=== PATIENT | male | born 1950 | race Caucasian/White ===

== ENCOUNTER 2021-03-13 15:31 | Observation (INO) | payer MEDICARE, SELFPAY ==
[2021-03-13] VITALS (12 sets, daily range): BP systolic 122–146; BP diastolic 48–64; PULSE 81–92; RESP 17–20; TEMP 36.7–37.4; O2SAT 95–99; BMI 28.1; BMI 27.2
--- NOTE | 2021-03-13 15:49 | CT_ITS ---
We are attempting to reach an attending provider to discuss findings. An addendum with communication details will be sent when the communication is complete. HISTORY: Neuro deficit, acute, stroke suspected EXAMINATION: CT Head Stroke Protocol W/O Contrast Injection TECHNIQUE: Multiple axial images were obtained of the head without intravenous contrast. A radiation dose optimization technique was used for this scan. IV Contrast dosage and agent: COMPARISON: None FINDINGS: BRAIN PARENCHYMA: No intra- or extra-axial hemorrhage. No evidence of acute infarct. No intracranial mass or mass effect. There is preservation of the tijer[place]/white matter interface. Posterior fossa structures are unremarkable. CSF SPACES: Appropriate for age. No hydrocephalus. Basal cisterns are patent. CALVARIUM, SKULL BASE, PARANASAL SINUSES AND MASTOID AIR CELLS: Scattered mucoperiosteal disease. No discrete lytic or blastic abnormalities. ORBITS: Both globes, extraocular muscles, optic nerves and retrobulbar fat appear unremarkable. ASPECTS Score for Acute Strokes: 10 CT/STROKE Brain/Head without Cont IMPRESSION: No acute intracranial findings. Individualized dose optimization techniques were used for this CT. at 1635 Reported and signed by: Adonis Forde MD Electronically Signed: Adonis Forde MD at 16:34 EDT Tel , Service support ,
--- NOTE | 2021-03-13 15:49 | EKG12_ITS ---
Test Reason : NAUSA VOMIT Blood Pressure : / mmHG Vent. Rate : 081 BPM Atrial Rate : 081 BPM P-R Int : 130 ms QRS Dur : 082 ms QT Int : 376 ms P-R-T Axes : 049 012 049 degrees QTc Int : 436 ms Normal sinus rhythm Normal ECG Confirmed by MAVERICK JOHNSON, MAGDA ([id number]), assistant editor RE PAEZ ([id number]) on 03/15/2021 9:39:57 AM Referred By: Confirmed By:MGADA TEMPLE MD
--- NOTE | 2021-03-13 15:50 | ED.VIS.STROK ---
HPI History of Present Illness Chief Complaint: Nausea/Vomiting Informant: patient and spouse/S.O. Onset/Context/Timing Onset: Weeks Context: Sudden Onset Timing: Intermittent and Waxes and wanes Quality and Location: Positive for Difficulty with Ambulation Current Severity: Moderate Maximum Severity: Moderate Worsened by: Nothing Relieved by: Nothing Associated Symptoms Associated Symptoms: Positive for Nausea and Vomiting; Negative for Headache and Chest Pain Narrative Narrative: Patient is an elderly male who presents with chief complaint of nausea and vomiting. He had an episode of nausea and vomiting last evening with problems with his balance. He presents because he had nausea vomiting several hours prior to presentation with problems with his balance. He states he is not able to walk. He states he has had problems with his balance intermittently for a long time. There is nothing that exacerbates, precipitates or alleviates his balance issue. He denies double vision or blurred vision. He denies ringing in his ears or decreased hearing. He denies headache. He denies trouble with speech or swallowing. He denies cardiac or respiratory symptoms. He denies black stool or maroon stool. He denies dysuria, frequency, urgency or hematuria. He denies history of trauma in the last several weeks. He does report history of cardiac disease status post bypass surgery 1996 with placement of 2 stents since. He also has history of hypertension hypercholesterolemia. He does not know the name of his medication. Prior similar symptoms: Yes Recent Illness/Hospitalization: No PFSH PFSH Medical History (Updated 03/13/21 @ 15:[address] Emir Chavez MD) History of coronary artery disease Hyperlipemia Hypertension Leukemia Allergy/AdvReac Type Severity Reaction Status Date / Time bee venom protein (honey bee) Allergy Anaphylaxis Verified 03/13/21 15:37 Surgical History (Updated 03/13/21 @ 15:43 by Carolina Caicedo) Hx of CABG Stented coronary artery no surgical history Social History (Updated 03/13/21 @ 15:[address] Emir Chavez MD) household members: spouse housing: house Smoking Status: Never smoker alcohol intake: current alcohol intake frequency: holidays/special occasions only substance use type: does not use ROS ROS ED Constitutional Constitutional ED: Denies chills, fever(s), subjective or sweats Eyes Eyes: Denies blurry vision, change in vision or diplopia ENT ENT ED: Denies ear pain, rhinorrhea or sore throat Cardiovascular Cardiovascular: Denies chest pain, palpitations, paroxysmal nocturnal dyspnea or racing heartbeat Respiratory/Chest Respiratory/Chest: Denies cough, dyspnea, dyspnea on exertion, paroxysmal nocturnal dyspnea or sputum Gastrointestinal Gastrointestinal: Reports nausea and vomiting; Denies abdominal pain, diarrhea or melena Genitourinary Genitourinary ED: Denies dysuria, hematuria or urinary frequency Musculoskeletal Musculoskeletal: Denies back pain, myalgias or neck pain Integumentary Denies rash Neurologic Neurologic: Denies headache(s), paresthesias or weakness Endocrine Endocrinology: Denies polydipsia, polyphagia or polyuria Hematologic/Lymphatic Hematologic/Lymphatic: Denies easy bleeding or easy bruising EXAM Physical Exam Const Vital Signs: 03/13/21 15:33 03/13/21 15:37 03/13/21 15:49 Temperature 99 F 99 F Temperature Source Oral Oral Pulse Rate 81 81 81 Respiratory Rate 18 18 20 H Blood Pressure 135/64 H 135/64 H 142/58 H Blood Pressure Mean 87 87 86 Pulse Ox 96 96 95 Oxygen Delivery Method Room Air Room Air Room Air 03/13/21 15:59 03/13/21 16:02 Temperature 99 F Temperature Source Oral Pulse Rate 81 Respiratory Rate 18 Blood Pressure 139/53 H Blood Pressure Mean 81 Pulse Ox 99 Oxygen Delivery Method Room Air Room Air Positive well nourished and well developed General Appearance ED: well developed and other Pain prefers to keep his eyes closed. He appears pale. Psychomotor skills are slow. HEENT Reports TM's clear and dry mucous membranes atraumatic Tympanic Membrane ED: Yes TM's clear Mouth ED: Yes dry mucous membranes Mouth: dry mucous membranes Eyes PERRL and EOMs intact bilaterally General Eye ED: Negative for pale conjunctiva or scleral icterus Neck no lymphadenopathy, supple and no JVD Thyroid: other Other Details: There is transmission of systolic murmur to the right and left side of the neck. Chest Wall inspection of chest normal Resp normal respiratory effort and clear to auscultation bilaterally Cardio Negative for no murmurs Cardio Narrative: There is a systolic crescendo and decrescendo in López heard throughout the precordium and radiates to the right and left side of the neck that is a grade 2/6. Rate: regular rate Rhythm: regular rhythm Heart Sounds: S1 normal and S2 normal GI normal to inspection, nondistended, normoactive bowel sounds GI Narrative: There is no palpable mass or pulsatile mass. There is no abdominal bruit noted. Palpation: Negative for hepatomegaly or splenomegaly Back/Spine no CVA tenderness Cervical Spine: Negative for cervical spine tenderness Thoracic Spine / Upper Back: Negative for thoracic spinal tenderness Extremity normal to inspection General Extremety ED: Negative for deformity, edema or tenderness General Extremity: Negative for deformity or edema Neuro oriented x3, CN's II-XII intact bilaterally and no sensory deficits noted Neuro Narrative: Cranials 2 through 12 are intact. Montse-Hallpike maneuver was negative. The eye skew test was negative. The H INT test was negative. Sensorium / Orientation: oriented to person, oriented to place, oriented to time and orientation impaired Speech: speech normal Gait (Neuro): Negative for normal gait Motor Exam: strength 5/5 throughout Psych mental status grossly normal Skin Rashes: no rashes STROKE Vital Signs/Narrative: Vital Signs Temp Pulse Resp BP Pulse Ox 03/13/21 16:02 99 F 81 18 139/53 H 99 03/13/21 15:49 81 20 H 142/58 H 95 03/13/21 15:37 99 F 81 18 135/64 H 96 03/13/21 15:33 99 F 81 18 135/64 H 96 NIHSS Initial: 1a Level of Consciousness: 1 1b LOC Questions (Score 2 if aphasic/stupor): 0 1c LOC Commands (Only score 1st attempt): 0 2 Best Gaze (If aphasic, use reflexive mvmts.): 0 3 Visual: 0 4 Facial Palsy: 0 5 Motor Arm Right (UN = amputation/fusion): 0 5 Motor Arm Left: 0 6 Motor Leg Right: 0 6 Motor Leg Left: 0 7 Limb ataxia (Only + if out of proportion): 0 8 Sensory (Aphasia/stupor=0 or 1, coma=2): 0 9 Best Language: 0 10 Dysarthria (mute, coma=2, intubated=UN): 0 11 Extinction and Inattention (only scored if +): 0 Total Score: 1 MDM MDM MDM Narrative Medical decision making narrative: Patient has broad-based gait and falls to the right. His NIH score is 1, however. Lab Data Attestation: I reviewed the patient's lab results. Lab results narrative: CBC, coags, electrolyte panel troponin are all normal. I received a call from radiologist that there is no acute stroke noted. Since patient is unable to ambulate falling to the right side with broad-based ataxic gait will call hospitalist for admission and stroke work-up. Labs: Laboratory Results - last 24 hr 03/13/21 03/13/21 03/13/21 16:03 16:05 16:05 WBC 3.3 L RBC 3.06 L Hgb 9.3 L Hct 28.1 L MCV 91.8 MCH 30.4 MCHC 33.1 RDW Std Deviation 47.3 H RDW Coeff of [place] 14.2 Plt Count 153 MPV 9.4 Immature Gran % (Auto) 0.300 Neut % (Auto) 65.3 Lymph % (Auto) 17.2 L [place] % (Auto) 13.9 H Eos % (Auto) 3.0 Baso % (Auto) 0.3 Absolute Neuts (auto) 2.2 Absolute Lymphs (auto) 0.57 L Nucleated RBC % 0 PT 13.9 INR 1.1 APTT 29.8 Sodium Potassium Chloride Carbon Dioxide Anion Gap BUN Creatinine Estim Creat Clear Calc Est GFR (MDRD) Af Amer Est GFR (MDRD) Non-Af BUN/Creatinine Ratio Glucose Calcium Troponin I POC Glucose 119 H 03/13/21 16:05 WBC RBC Hgb Hct MCV MCH MCHC RDW Std Deviation RDW Coeff of [place] Plt Count MPV Immature Gran % (Auto) Neut % (Auto) Lymph % (Auto) [place] % (Auto) Eos % (Auto) Baso % (Auto) Absolute Neuts (auto) Absolute Lymphs (auto) Nucleated RBC % PT INR APTT Sodium 133 L Potassium 3.8 Chloride 102 Carbon Dioxide 26.0 Anion Gap 5 BUN 17 Creatinine 1.08 Estim Creat Clear Calc 63.84 Est GFR (MDRD) Af Amer 86 Est GFR (MDRD) Non-Af 71 BUN/Creatinine Ratio 15.7 Glucose 121 H Calcium 8.2 L Troponin I < 0.015 POC Glucose Radiography Diagnostic Testing: Radiology Impression Brain CT 03/13/21 15:49 IMPRESSION: No acute intracranial findings. Individualized dose optimization techniques were used for this CT. at 1635 Reported and signed by: Adonis Forde MD Electronically Signed: Adonis Forde MD at 16:34 EDT Tel , Service support , Stroke Documentation Questions Stroke Team Activated: No Reviewed Inclusion/Exclusion criteria: No Was Patient considered for Endovascular Intervention?: No IV Alteplase (t-PA) Administered: No No contraindications for IV Alteplase (t-PA) administration.: No Alteplase (t-PA) risks, benefits, alternative discussed: No (Patient outside the window) Discharge Plan Triage Chief Complaint: Nausea/Vomiting ED Provider: Emir Chavez Dx/Rx/DC Orders Primary Care Provider: Jesse Gonzalez
[2021-03-13 16:10] LABS: Bedside Glucose 119 mg/dL (70-110)
[2021-03-13 16:14] LABS: Absolute Lymphocyte Count 0.57 X10^3/uL (0.83-4.51); Absolute Neutrophil Count 2.2 X10^3/uL (2.0-7.7); Basophil# 0.01 X10^3/uL; Basophil% 0.3 % (0-1); Hematocrit 28.1 % (40-54); Hemoglobin 9.3 g/dL (13.0-16.5); Lymphocyte # 0.57 X10^3/ul (0.83-4.51); Lymphocyte % 17.2 % (19-41); Mean Corp Hgb Conc 33.1 g/dL (32-36); Mean Corpuscular Hgb 30.4 pg (27.0-32.0); Mean Corpuscular Volume 91.8 fL (80-94); Mean Platelet Vol. 9.4 fl (6.2-12.0); Monocyte# 0.46 X10^3/uL; Monocyte% 13.9 % (0-10); NRBC Flagged by Analyzer 0 % (0-5); Neutrophil # 2.17 X10^3/uL (2.7-7.7); Neutrophil % 65.3 % (47-70); POSITIVE DIFFERENTIAL YES; Platelet Count 153 K/mm3 (150-450); RBC Distribution Width CV 14.2 % (11.6-14.6); RBC Distribution Width SD 47.3 fl (35.1-43.9); Red Blood Count 3.06 M/mm3 (4.6-6.2); White Blood Count 3.3 K/mm3 (4.4-11.0)
--- NOTE | 2021-03-13 16:15 | RAD_ITS ---
HISTORY: Neuro deficit, acute, stroke suspected EXAMINATION/TECHNIQUE: XR Chest 1 View: 1 view COMPARISON: None FINDINGS: LINES/DEVICES: None. LUNGS: No consolidation, edema or effusion. MEDIASTINUM AND CARDIOVASCULAR STRUCTURES: Cardiac silhouette not enlarged. Central airways and mediastinal contour are unremarkable. BONES AND SOFT TISSUES: No acute bony abnormalities. Median sternotomy sutures present. RAD/Chest 1 View IMPRESSION: No radiographic evidence of acute cardiopulmonary disease. at 1657 Reported and signed by: Adonis Forde MD Electronically Signed: Adonis Forde MD at 16:56 EDT Tel , Service support ,
[2021-03-13 16:19] LABS: Differential Indicated SCAN CRITERIA MET
[2021-03-13 16:29] LABS: International Normalized Ratio 1.1; Partial Thromboplast Time 29.8 Seconds (24.1-36.2); Prothrombin Time (Protime)PT. 13.9 SECONDS (11.7-14.9)
[2021-03-13 16:30] LABS: Anion Gap 5 (5-15); BUN 17 mg/dL (7-18); BUN/Creat Ratio 15.7 RATIO (10-20); Calcium,Total 8.2 mg/dL (8.5-10.1); Chloride 102 mmol/L (98-107); Creatinine, Serum 1.08 mg/dL (0.70-1.30); EST Glomerular Filtration Rate 71 mL/min (>60); Est Glom Filt Rate - Afr Amer 86 mL/min (>60); Estimated Creatinine Clearance 63.84 ml/min; Glucose 121 mg/dL (74-106); Potassium 3.8 mmol/L (3.5-5.1); Sodium Level 133 mmol/L (136-145)
[2021-03-13 16:50] LABS: Platelet Estimate ADEQUATE (ADEQ); Red Cell Morphology NORM C+C NORMAL (NORM C&C)
--- NOTE | 2021-03-13 17:09 | HP.PCM.HOS_ITS ---
Documented by User: Peyton Horne NP, LEATHER PATCHER-C 03/13/21 17:27 HPI - General General Date of Admission: 03/13/21 HPI Narrative AYAN BOWERS, is a 71 M who presents to the emergency room due to unsteady gait, nausea, vomiting. Patient states he has had gait unsteadiness for a significant amount of time however over the past 2 days has had significant difficulty walking due to leaning to the right and feels as if he needs to hold onto something. He denies falls at home. Denies speech changes. States he does have intermittent double vision. Denies unilateral weakness. He denies dizziness or sensation of room spinning. He states his nausea, vomiting typ ically happens an hour or 2 after meals and is not associated with other symptoms. He denies history of TIA/CVA. He has a past medical history of CAD with history of CABG and stents, hypertension, hyperlipidemia, CLL on chemotherapy. [facility] Medical History (Updated 03/13/21 @ 17:29 by Yasmine Sanchez) Arthritis Glaucoma Gout History of coronary artery disease Hypercholesteremia Hyperlipemia Hypertension Leukemia Pilonidal abscess Home Medications acyclovir 400 mg PO BID 03/13/21 [History Last Taken 03/13/21] amlodipine 5 mg PO DAILY 03/13/21 [History Last Taken 03/13/21] aspirin [Aspirin Low Dose] 81 mg PO DAILY 03/13/21 [History Last Taken 03/12/21] atorvastatin 40 mg PO QHS 03/13/21 [History Last Taken 03/11/21] clopidogrel 75 mg PO DAILY 03/13/21 [History Last Taken 03/13/21] latanoprost [Xalatan] 1 drp RIGHT EYE QHS 03/13/21 [History Last Taken 03/11/21] melatonin 3 mg PO QHS 03/13/21 [History Last Taken 03/11/21] metoprolol succinate 50 mg PO DAILY 03/13/21 [History Last Taken 03/11/21] multivitamin 1 tab PO DAILY 03/13/21 [History Last Taken 03/13/21] prochlorperazine maleate 10 mg PO Q6H PRN 03/13/21 [History Last Taken 03/12/21] timolol maleate 1 drp EACH EYE DAILY 03/13/21 [History Last Taken 03/13/21] Allergy/AdvReac Type Severity Reaction Status Date / Time bee venom protein (honey bee) Allergy Anaphylaxis Verified 03/13/21 15:37 Family History (Updated 03/13/21 @ 17:12 by Peyton Horne NP, LEATHER PATCHER-C) Mother CAD (coronary artery disease) Father Cancer Surgical History (Updated 03/13/21 @ 17:13 by Peyton Horne NP, LEATHER PATCHER-C) History of right hip hemiarthroplasty Hx of CABG Stented coronary artery Social History household members: spouse housing: house Smoking Status: Never smoker alcohol intake: current alcohol intake frequency: holidays/special occasions only substance use type: does not use ROS Constitutional Constitutional: Denies change in weight, chills, fatigue, fever(s) or weakness Eyes Eyes: Reports double vision Cardiovascular Cardiovascular: Denies chest pain, edema, lightheadedness, palpitations or syncope Respiratory/Chest Respiratory/Chest: Denies cough, dyspnea, productive cough, shortness of breath at rest, shortness of breath with exertion or wheezing Gastrointestinal Gastrointestinal: Reports nausea and vomiting; Denies abdominal pain, constipation or diarrhea Genitourinary Genitourinary: Denies burning urination, difficulty urinating, dysuria, hematuria, urinary frequency, urinary incontinence or urinary urgency Musculoskeletal Musculoskeletal: Denies back pain, joint pain or muscle weakness Integumentary Integumentary: Reports systems reviewed and no addt'l complaints, except as documented Neurologic Neurologic: Reports abnormal gait and disequilibrium; Denies abnormal speech, confusion, dizziness, focal weakness, numbness, paresthesias, seizure-like activity or syncope Psychiatric Psychiatric: Denies anxiety or depression Hematologic/Lymphatic Hematologic/Lymphatic: Denies anemia, easy bleeding or easy bruising Allergic/Immunologic Allergic/Immunologic: Denies hives or asthma Vital Signs Vital Signs Vital Signs: 03/13/21 15:33 03/13/21 15:37 03/13/21 15:49 Temperature 99 F 99 F Temperature Source Oral Oral Pulse Rate 81 81 81 Respiratory Rate 18 18 20 H Blood Pressure 135/64 H 135/64 H 142/58 H Blood Pressure Mean 87 87 86 Pulse Ox 96 96 95 Oxygen Delivery Method Room Air Room Air Room Air 03/13/21 15:59 03/13/21 16:02 03/13/21 16:19 Temperature 99 F Temperature Source Oral Pulse Rate 81 84 Respiratory Rate 18 18 Blood Pressure 139/53 H 141/55 H Blood Pressure Mean 81 83 Pulse Ox 99 95 Oxygen Delivery Method Room Air Room Air Room Air 03/13/21 16:30 03/13/21 17:00 Temperature 98.9 F Temperature Source Oral Pulse Rate 84 87 Respiratory Rate 18 20 H Blood Pressure 122/50 H 136/57 H Blood Pressure Mean 74 83 Pulse Ox 95 96 Oxygen Delivery Method Room Air Room Air Weight Weight: 196 lb 6.91 oz Body Mass Index (BMI) 28.1 Physical Exam Const alert, oriented x3 and no apparent distress Orientation / Consciousness: awake, oriented to person, oriented to place and oriented to time HEENT normocephalic and moist oral mucous membranes Eyes PERRL, EOMs intact bilaterally and conjunctivae normal Neck no lymphadenopathy Resp normal respiratory effort and clear to auscultation bilaterally Cardio regular rate and regular rhythm Peripheral Pulses: pulses 2+ throughout GI normal to inspection, nondistended, normoactive bowel sounds, non-tender and non-distended Extremity normal to inspection Skin no rashes or lesions noted Lesions: no lesions Rashes: no rashes Trauma: no lacerations or abrasions Neuro CN's II-XII intact bilaterally, no focal motor deficits, no sensory deficits noted and deep tendon reflexes 2+ bilaterally Neuro Narrative: Ataxia upper and lower extremities. Psych mental status grossly normal and affect normal Lab / Micro Data Result Diagrams: 03/13/21 16:05 03/13/21 16:05 Labs: Laboratory Results - last 24 hr 03/13/21 03/13/21 03/13/21 16:03 16:05 16:05 WBC 3.3 L RBC 3.06 L Hgb 9.3 L Hct 28.1 L MCV 91.8 MCH 30.4 MCHC 33.1 RDW Std Deviation 47.3 H RDW Coeff of [place] 14.2 Plt Count 153 MPV 9.4 Immature Gran % (Auto) 0.300 Neut % (Auto) 65.3 Lymph % (Auto) 17.[address] [place] % (Auto) 13.9 H Eos % (Auto) 3.0 Baso % (Auto) 0.3 Absolute Neuts (auto) 2.2 Absolute Lymphs (auto) 0.57 L Nucleated RBC % 0 Differential Comment Diff Path Review May foll Platelet Estimate ADEQUATE RBC Morphology NORM C+C PT 13.9 INR 1.1 APTT 29.8 Sodium Potassium Chloride Carbon Dioxide Anion Gap BUN Creatinine Estim Creat Clear Calc Est GFR (MDRD) Af Amer Est GFR (MDRD) Non-Af BUN/Creatinine Ratio Glucose Calcium Troponin I POC Glucose 119 H 03/13/21 16:05 WBC RBC Hgb Hct MCV MCH MCHC RDW Std Deviation RDW Coeff of [place] Plt Count MPV Immature Gran % (Auto) Neut % (Auto) Lymph % (Auto) [place] % (Auto) Eos % (Auto) Baso % (Auto) Absolute Neuts (auto) Absolute Lymphs (auto) Nucleated RBC % Differential Comment Diff Path Review Platelet Estimate RBC Morphology PT INR APTT Sodium 133 L Potassium 3.8 Chloride 102 Carbon Dioxide 26.0 Anion Gap 5 BUN 17 Creatinine 1.08 Estim Creat Clear Calc 63.84 Est GFR (MDRD) Af Amer 86 Est GFR (MDRD) Non-Af 71 BUN/Creatinine Ratio 15.7 Glucose 121 H Calcium 8.2 L Troponin I < 0.015 POC Glucose Radiology Impression Brain CT 03/13/21 15:49 IMPRESSION: No acute intracranial findings. Individualized dose optimization techniques were used for this CT. at 1635 Reported and signed by: Adonis Forde MD Electronically Signed: Adonis Forde MD at 16:34 EDT Tel , Service support , ADDENDUM: 03/13/21 1648 IMPRESSION: No acute intracranial findings. Individualized dose optimization techniques were used for this CT. at 1635 Reported and signed by: Adonis Forde MD N.B. : The above information has been verbally conveyed by Adonis Forde MD to Emir Chavez MD, MD, on 03/13/2021 16:38:36 (ET). Electronically Signed: Adonis Forde MD at 16:34 EDT Tel , Service support , Chest X-Ray 03/13/21 16:15 IMPRESSION: No radiographic evidence of acute cardiopulmonary disease. at 1657 Reported and signed by: Adonis Forde MD Electronically Signed: Adonis Forde MD at 16:56 EDT Tel , Service support , Assessment & Plan Assessment/Plan (1) Ataxia: (2) Nausea & vomiting: PLAN: 1. Ataxia, nausea/vomiting-rule out CVA. Brain CT with no acute findings. Obtain MRI of brain, MRA of head and neck. Echocardiogram. Aspirin, statin. PT/OT/ST. As needed antiemetics. 2. CAD with history of CABG and stents-on aspirin, Plavix, statin, metoprolol. Most recent stent September 2020. 3. Hypertension-on amlodipine, metoprolol. 4. Hyperlipidemia-continue statin. 5. CLL on chemotherapy- follows with Dr. Mustafa. Undergoing chemotherapy. Labs stable. DVT prophylaxis-Lovenox subcu Code status: Discussed in length with patient including differences between full code, DNR CCA and DNR CC. Patient elects DNR CCA no intubation. This patient was seen by UZAIR Mora under the supervision of Dr. Dorado. Documented by User: Dr. Linda Dorado MD 03/13/21 18:21 HPI - General General Date of Admission: 03/13/21 [facility] Medical History (Updated 03/13/21 @ 17:29 by Yasmine Sanchez) Arthritis Glaucoma Gout History of coronary artery disease Hypercholesteremia Hyperlipemia Hypertension Leukemia Pilonidal abscess Home Medications acyclovir 400 mg PO BID 03/13/21 [History Last Taken 03/13/21] amlodipine 5 mg PO DAILY 03/13/21 [History Last Taken 03/13/21] aspirin [Aspirin Low Dose] 81 mg PO DAILY 03/13/21 [History Last Taken 03/12/21] atorvastatin 40 mg PO QHS 03/13/21 [History Last Taken 03/11/21] clopidogrel 75 mg PO DAILY 03/13/21 [History Last Taken 03/13/21] latanoprost [Xalatan] 1 drp RIGHT EYE QHS 03/13/21 [History Last Taken 03/11/21] melatonin 3 mg PO QHS 03/13/21 [History Last Taken 03/11/21] metoprolol succinate 50 mg PO DAILY 03/13/21 [History Last Taken 03/11/21] multivitamin 1 tab PO DAILY 03/13/21 [History Last Taken 03/13/21] prochlorperazine maleate 10 mg PO Q6H PRN 03/13/21 [History Last Taken 03/12/21] timolol maleate 1 drp EACH EYE DAILY 03/13/21 [History Last Taken 03/13/21] Allergy/AdvReac Type Severity Reaction Status Date / Time bee venom protein (honey bee) Allergy Anaphylaxis Verified 03/13/21 15:37 Family History (Updated 03/13/21 @ 17:12 by Peyton Horne NP, LEATHER PATCHER-C) Mother CAD (coronary artery disease) Father Cancer Surgical History (Updated 03/13/21 @ 17:13 by Peyton Horne LEATHER PATCHER, LEATHER PATCHER-C) History of right hip hemiarthroplasty Hx of CABG Stented coronary artery Social History household members: spouse housing: house Smoking Status: Never smoker alcohol intake: current alcohol intake frequency: holidays/special occasions only substance use type: does not use Lab / Micro Data Result Diagrams: 03/13/21 16:05 03/13/21 16:05 Addendum Addendum: This patient was seen in conjunction with Peyton Horne. I have independently interviewed and examined the patient and reviewed pertinent historical, laboratory, and other data. I have reviewed her note and concur with her documentation 71-year-old male with past medical history of CLL, on chemotherapy, CAD status post CABG, status post stents, recent stent in September 2020, hypertension, hy perlipidemia who comes in with intermittent dizziness and unsteady gait ongoing for months, worse over the last 1-2 days. Patient stated that he will be driving or walking around will be intermittently dizzy with unsteady gait the last for a few minutes and goes away. However in the last few days especially yesterday, he has had severe dizziness with ataxia as well as nausea with vomiting. He denied any chest pain or palpitations. No new medications. Physical Exam: Vitals: Gen: Looks in some discomfort, not pale, not jaundiced CVS:HS I +II, regular, 3/6 holosystolic murmur heard best in the tricuspid/mitral area RESP: CTA GI: BS present and normal, soft, nontender, no palpable organs EXT:No edema CUSTOMER EXPERIENCE LEADER: CN II-XII intact, power in all 4 limbs are 5/5, lyfkxo-ul-fznp test in both arms were intact. Exmp-oh-dlds in both legs were intact. I did not walk patient WBC 3.3, HB 9.3, Na 133, Cr 1.08 EKG shows NSR, no ST-T abnormality, QTC - [address] - no acute abnormality CXR - unremarkable ASSESSMENT: 1. Acute ataxia, suspected acute posterior circulation stroke 2. Hypertension 3. Hyperlipidemia 4. CAD s/p CABG 5. CLL 6. Leukopenia 7. Anemia 8. Hyponatremia secondary to recent vomiting Plan: Admit to PCU for posterior circulation stroke work-up -MRI brain, MRA of the head and neck, 2D echo, PT/OT/ST Will check iron stores Orthostatic vitals Gentle IVF, antiemetics I discussed and explained in details the various types of CODE STATUS-full code, DNR CCA, DNR CC. Patient chose DNR-CCA, no intubation Time spent discussing CODE STATUS 16 minutes Visit Charges OBSV E&M: 65617 Initial observation care L3 Procedures Hospitalists Procedures: 82750 Advncd Care Plan 30 Min
--- NOTE | 2021-03-13 18:08 | MRI_ITS ---
HISTORY: Acute CVA EXAMINATION: MRA Neck WO/W Contrast TECHNIQUE: Routine carotid MR angiogram protocol was performed. 3D reconstructions were reviewed. Nascet criteria using the distal ICAs for comparison were used for evaluation of stenoses. IV Contrast dosage and agent: DOTAREM 17ML COMPARISON: None FINDINGS: AORTIC ARCH AND BRANCHES: No significant stenosis at the visualized portions. RIGHT CCA: No occlusion, significant stenosis or dissection. RIGHT ICA: 50% stenosis at its origin without distal occlusion, dissection or additional significant stenosis. LEFT CCA: No occlusion, significant stenosis or dissection. LEFT ICA: No occlusion, significant stenosis or dissection. RIGHT VERTEBRAL ARTERY: No occlusion, significant stenosis or dissection. LEFT VERTEBRAL ARTERY: No occlusion, significant stenosis or dissection. MRI/MRA Neck WITH and W/O Contrast IMPRESSION: 50% stenosis at the origin of the right ICA. at 2322 Reported and signed by: Adonis Forde MD Electronically Signed: Adonis Forde MD at 23:21 EDT Tel , Service support ,
--- NOTE | 2021-03-13 18:08 | ECHOD_ITS ---
Reason For Study: TIA/CVA Procedure This was a 2D Doppler, Color Flow transthoracic echocardiogram. The study was technically difficult. Exam performed portable in patient room. Left Ventricle Normal LV size. Left ventricular systolic function is normal. The estimated ejection fraction is 60 %. Diastolic function is indeterminate. No regional wall motion abnormalities noted. Right Ventricle Normal RV size. Normal systolic function. Atria The left atrium is mildly enlarged. Normal right atrium. No doppler evidence for ASD. Bubble contrast study negative for right to left interatrial shunt. Mitral Valve There is mild mitral annular calcification. Mild diffuse mitral valve thickening. Mild (1+) mitral valve insufficiency. Tricuspid Valve Normal tricuspid valve. Trivial tricuspid valve insufficiency. Unable to estimate RV systolic pressure/pulmonary artery pressure due to technically difficult study. Aortic Valve Trisinus/trileaflet aortic valve. Moderate focal aortic valve calcification. Mild aortic stenosis. Pulmonic Valve The pulmonic valve is not well visualized. Trivial pulmonic valve insufficiency. Great Vessels Normal sized aortic root. Calcified aortic root. Pericardium/Pleural No pericardial effusion. Medication Performed a rapid injection of agitated mix of 9 cc saline and 1cc air to assess for atrial septal defect. MMode/2D Measurements & Calculations LVIDd: 4.9 cm IVSd: 1.1 cm LVOT diam: 2.0 cm LVIDs: 3.3 cm LVPWd: 1.0 cm RVDd: 3.3 cm FS: 32.8 % LVOT area: 3.3 cm2 LAV(MOD-bp): 79.0 ml LA A4 area: 24.9 cm2 LA dimension(2D): 4.4 cm LAV(MOD-bp) Indexed: 38.7 ml/m2 LAV(MOD-sp2): 64.5 ml LAV(MOD-sp4): 91.4 ml RA A4 area: 14.2 cm2 Time Measurements MV dec time: 0.24 sec Doppler Measurements & Calculations MV E max mainor: 123.9 cm/sec Lat Peak E' Mainor: 9.2 cm/sec Med Peak E' Mainor: 13.1 cm/sec MV A max mainor: 121.8 cm/sec E/E' lat: 13.5 E/E' med: 9.5 MV E/A: 1.0 Ao V2 max: 229.3 cm/sec LV V1 max: 134.0 cm/sec SV(LVOT): 83.6 ml Ao max P.0 mmHg LV V1 max P.2 mmHg Ao V2 mean: 156.5 cm/sec LV V1 mean P.7 mmHg Ao mean P.9 mmHg LV V1 mean: 92.4 cm/sec Ao V2 VTI: 43.9 cm LV V1 VTI: 25.7 cm ANGELO(I,D): 1.9 cm2 ANGELO(V,D): 1.9 cm2 PA V2 max: 135.7 cm/sec ECHO/Echo Complete Interpretation Summary The study was technically difficult. Left ventricular systolic function is normal. The estimated ejection fraction is 60 %. The left atrium is mildly enlarged. There is mild mitral annular calcification. Mild diffuse mitral valve thickening. Mild (1+) mitral valve insufficiency. Trivial tricuspid valve insufficiency. Mild aortic stenosis. Trivial pulmonic valve insufficiency. Calcified aortic root. Unable to estimate RV systolic pressure/pulmonary artery pressure due to techni lucio difficult study. Diastolic function is indeterminate. Bubble contrast study negative for right to left interatrial shunt. Ordering Physician: Linda Dorado Referring Physician: Jesse Gonzalez Performed By: Aliya Snyder, SANTIAGO, RVT
--- NOTE | 2021-03-13 18:08 | MRI_ITS ---
HISTORY: Neurodeficit, posterior stroke suggested EXAMINATION: MR Brain W/O Contrast TECHNIQUE: Multiplanar and multisequence MR images of the brain were obtained without gadolinium. IV Contrast dosage and agent: None. COMPARISON: None FINDINGS: BRAIN PARENCHYMA: No MRI evidence of hemorrhage. No evidence of acute infarct. No intracranial mass or mass effect. There is preservation of the [place]/white matter interface. Normal sella turcica, pituitary gland, infundibular stalk, optic chiasm and hypothalamus. The internal auditory canals are patent. Posterior fossa structures are unremarkable. CSF SPACES: Appropriate for age. No hydrocephalus. Basal cisterns are patent. VASCULAR SYSTEM: Normal flow voids in the major intracranial circulation. CALVARIUM, SKULL BASE, PARANASAL SINUSES AND MASTOID AIR CELLS: Right maxillary sinus mucoperiosteal disease. No discrete lytic or blastic abnormalities. ORBITS: Both globes, extraocular muscles, optic nerves and retrobulbar fat appear unremarkable. MRI/Brain without Contrast IMPRESSION: No acute intracranial findings. at 2325 Reported and signed by: Adonis Forde MD Electronically Signed: Adonis Forde MD at 23:24 EDT Tel , Service support ,
--- NOTE | 2021-03-13 18:34 | MRI_ITS ---
HISTORY: ACUTE STROKE, NEURODEFICIT EXAMINATION: MRA Head W/O Contrast TECHNIQUE: Routine [place]/brain 3D time of flight MR angiogram protocol was performed without gadolinium. 3D reconstructions were reviewed. IV Contrast dosage and agent: COMPARISON: None FINDINGS: --Anterior circulation: ICAs: No significant stenosis at the intracranial/visualized segments. ACAs: No significant stenosis at the visualized segments. ACOM: Present. MCAs: No significant stenosis at the visualized segments. --Posterior circulation: PCOMs: Not present. hook and eye attacher: No significant stenosis at the visualized segments. BASILAR ARTERY: No significant stenosis. VERTEBRAL ARTERIES: No significant stenosis at the intradural/visualized segments. No evidence of intracranial aneurysm or vascular malformation. MRI/MRA Head ONLY without Contrast IMPRESSION: Unremarkable MRA head. at 2334 Reported and signed by: Adonis Forde MD Electronically Signed: Adonis Forde MD at 23:33 EDT Tel , Service support ,
[2021-03-13] MEDS: 0.9% Normal Saline 1,000 ML 100 ML IV (18:38)
[2021-03-13] MEDS: Latanoprost 0.005% 1 Bottle 1 DRP RIGHT EYE (22:14)
[2021-03-13] MEDS: Acyclovir 200 MG Capsule 400 MG PO (22:15)
[2021-03-13] MEDS: Famotidine 20 MG Tablet PO (22:16)
[2021-03-13] MEDS: Atorvastatin Calcium 80 MG Tablet PO (22:16)
[2021-03-13] MEDS: Heparin Injection (Vial) 5,000 UNIT/ML VIAL 5000 UNIT SC (22:17)
[2021-03-13] MEDS: MELATONIN 3 MG TABLET PO (22:18)
[2021-03-14] VITALS (9 sets, daily range): BP systolic 105–122; BP diastolic 45–59; PULSE 80–96; RESP 16–18; TEMP 36.8–38.2; O2SAT 94–98
[2021-03-14] MEDS: Acetaminophen 325 MG Tablet 650 MG PO (04:40)
[2021-03-14] MEDS: 0.9% Normal Saline 1,000 ML 100 ML IV (04:57)
[2021-03-14] MEDS: Heparin Injection (Vial) 5,000 UNIT/ML VIAL 5000 UNIT SC (06:28)
[2021-03-14 06:52] LABS: Absolute Lymphocyte Count 0.43 X10^3/uL (0.83-4.51); Absolute Neutrophil Count 1.2 X10^3/uL (2.0-7.7); Eosinophil# 0.08 X10^3/uL; Eosinophils% 4.1 % (0-5); Hematocrit 26.3 % (40-54); Hemoglobin 8.6 g/dL (13.0-16.5); Lymphocyte # 0.43 X10^3/ul (0.83-4.51); Lymphocyte % 21.8 % (19-41); Mean Corp Hgb Conc 32.7 g/dL (32-36); Mean Corpuscular Hgb 30.4 pg (27.0-32.0); Mean Corpuscular Volume 92.9 fL (80-94); Mean Platelet Vol. 9.9 fl (6.2-12.0); Monocyte# 0.26 X10^3/uL; Monocyte% 13.2 % (0-10); NRBC Flagged by Analyzer 0 % (0-5); Neutrophil # 1.19 X10^3/uL (2.7-7.7); Neutrophil % 60.4 % (47-70); POSITIVE DIFFERENTIAL YES; POSITIVE MORPHOLOGY YES; Platelet Count 149 K/mm3 (150-450); RBC Distribution Width CV 14.2 % (11.6-14.6); RBC Distribution Width SD 48.2 fl (35.1-43.9); Red Blood Count 2.83 M/mm3 (4.6-6.2)
[2021-03-14 06:55] LABS: Differential Indicated SCAN CRITERIA MET
[2021-03-14 07:14] LABS: Differential Comment SCANNED
[2021-03-14 07:15] LABS: Atypical Lymphocyte 1+ %
[2021-03-14 07:25] LABS: AST(SGOT) 28 U/L (15-37); Alanine Aminotransfer ALT/SGPT 35 U/L (16-61); Albumin, Serum 2.6 g/dL (3.2-5.0); Alkaline Phosphatase 62 U/L (45-117); Anion Gap 6 (5-15); BUN 12 mg/dL (7-18); BUN/Creat Ratio 12.7 RATIO (10-20); Calcium,Total 7.6 mg/dL (8.5-10.1); Chloride 104 mmol/L (98-107); Cholesterol 86 mg/dL (200); Creatinine, Serum 0.95 mg/dL (0.70-1.30); EST Glomerular Filtration Rate 83 mL/min (>60); Est Glom Filt Rate - Afr Amer 101 mL/min (>60); Estimated Creatinine Clearance 72.57 ml/min; Globulin 2.7 g/dL (2.2-4.2); Glucose 94 mg/dL (74-106); High Density Lipoprotein 22 mg/dL; Potassium 3.7 mmol/L (3.5-5.1); Protein, Total 5.3 g/dL (6.4-8.2); Sodium Level 136 mmol/L (136-145); Triglycerides 118 mg/dL; Very Low Density Lipoprotein 24 mg/dL (5-40)
[2021-03-14] MEDS: Acyclovir 200 MG Capsule 400 MG PO (09:54)
[2021-03-14] MEDS: Famotidine 20 MG Tablet PO (09:54)
[2021-03-14] MEDS: Clopidogrel Bisulfate 75 MG Tablet PO (09:54)
[2021-03-14] MEDS: Aspirin E.C. 81 MG Tablet PO (09:55)
[2021-03-14] MEDS: Timolol 0.5% 5ML OPTH.BTL 1 DRP EACH EYE (09:55)
[2021-03-14] MEDS: Metoprolol(XL)Succ 50 MG Tablet PO (09:55)
[2021-03-14] MEDS: amLODIPine 5 MG Tablet PO (09:57)
--- NOTE | 2021-03-14 11:49 | PCM.DC ---
Discharge Instructions Diet Discharge Diet: No restrictions Activity Discharge Activity: Return to Normal Activity Dressing / Incision Call your doctor if you observe: Shortness of breath, Dizziness and Chest pain Follow Up Care Test Results: Test results from this visit will be discussed in further detail at your follow-up appointment, if applicable. Discharge Plan Admission Admit Date/Time: 03/13/21 16:56 Primary Reason for Your Visit: Ataxia Attending Provider: Ayan Thibodeaux Primary Care Provider: Jesse Gonzalez Discharge Orders/Prescriptions Prescriptions: Continued multivitamin Tablet 1 tab PO DAILY RF: 0 latanoprost [Xalatan] 0.005 % drops 1 drp RIGHT EYE QHS RF: 0 atorvastatin 40 mg tablet 40 mg PO QHS RF: 0 metoprolol succinate 50 mg tablet extended release 24 hr 50 mg PO DAILY RF: 0 melatonin 3 mg Tablet 3 mg PO QHS RF: 0 clopidogrel 75 mg tablet 75 mg PO DAILY RF: 0 amlodipine 5 mg tablet 5 mg PO DAILY RF: 0 prochlorperazine maleate 10 mg Tablet 10 mg PO Q6H PRN (Reason: Nausea) RF: 0 acyclovir 400 mg tablet 400 mg PO BID RF: 0 aspirin [Aspirin Low Dose] 81 mg Tablet,Delayed Release (Dr/Ec) 81 mg PO DAILY RF: 0 timolol maleate 0.5 % drops 1 drp EACH EYE DAILY RF: 0 Referrals / Follow Up: Jesse Gonzalez MD [Primary Care Provider] - In 1 Week Kathy Mustafa MD [STAFF PHYSICIAN] - See Referral Note (As scheduled) Disposition Disposition (needs filled in before D/C Order can be placed): Home, self care
--- NOTE | 2021-03-14 12:13 | DS.PCM_ITS ---
Documented by User: Peyton Horne NP, WORD PROCESSING OPERATOR-C 03/14/21 12:17 Providers Date of Admission: 03/13/21 Date of Discharge: 03/14/21 Primary Care Physician: Dr. Jesse Gonzalez MD Reason For Visit: ATAXIA Diagnosis Discharge Diagnosis (1) Ataxia: Status: Acute Code(s): R27.0 - Ataxia, unspecified (2) Nausea & vomiting: Status: Acute Code(s): R11.2 - Nausea with vomiting, unspecified Medications at Discharge Home Medications acyclovir 400 mg PO BID 03/13/21 amlodipine 5 mg PO DAILY 03/13/21 aspirin [Aspirin Low Dose] 81 mg PO DAILY 03/13/21 atorvastatin 40 mg PO QHS 03/13/21 clopidogrel 75 mg PO DAILY 03/13/21 latanoprost [Xalatan] 1 drp RIGHT EYE QHS 03/13/21 melatonin 3 mg PO QHS 03/13/21 metoprolol succinate 50 mg PO DAILY 03/13/21 multivitamin 1 tab PO DAILY 03/13/21 prochlorperazine maleate 10 mg PO Q6H PRN 03/13/21 timolol maleate 1 drp EACH EYE DAILY 03/13/21 meclizine 12.5 mg PO TID PRN #30 tab 03/14/21 Hospital Course Operations None Procedures 2-D Echocardiogram Summary of Care Provided Minutes Spent on Discharge: 35 Hospital Course: Patient is a 71-year-old male admitted 03/13/2021 due to ataxia with nausea and vomiting. 1. Ataxia, nausea/vomiting- TIA/CVA ruled out. Brain CT with no acute findings. MRI without acute findings. MRA of neck shows right ICA 50% stenosis. MRA of head unremarkable. Patient symptoms have resolved. He received IV fluids during admission. Patient recently started chemotherapy for CLL and received his second treatment last week. Suspect symptoms may be related to recent chemotherapy treatment versus mild episode of vertigo. Echocardiogram completed, report pending and will be reviewed prior to discharge. Patient is on aspirin, Plavix, statin at baseline. Follow-up with PCP in 1 week. 2. CAD with history of CABG and stents-on aspirin, Plavix, statin, metoprolol. Most recent stent September 2020. 3. Hypertension-on amlodipine, metoprolol. 4. Hyperlipidemia-continue statin. 5. CLL on chemotherapy- follows with Dr. Mustafa. Undergoing chemotherapy. Continue outpatient follow-up. Physical Exam Const alert, oriented x3 and no apparent distress Orientation / Consciousness: awake, oriented to person, oriented to place and oriented to time HEENT normocephalic and moist oral mucous membranes Eyes PERRL, EOMs intact bilaterally and conjunctivae normal Neck no lymphadenopathy Resp normal respiratory effort and clear to auscultation bilaterally Cardio regular rate and regular rhythm Peripheral Pulses: pulses 2+ throughout GI normal to inspection, nondistended, normoactive bowel sounds, non-tender and non-distended Extremity normal to inspection Skin no rashes or lesions noted Lesions: no lesions Rashes: no rashes Trauma: no lacerations or abrasions Neuro CN's II-XII intact bilaterally, no focal motor deficits, no sensory deficits noted and deep tendon reflexes 2+ bilaterally Neuro Narrative: Ataxia upper and lower extremities. Psych mental status grossly normal and affect normal Patient seen and examined prior to discharge. Physical assessment as noted above. Patient is stable for discharge with follow up recommendations as noted above. This patient was seen by UZAIR Mora under the supervision of Dr. Thibodeaux. ABG / Lab / Microbiology Data Result Diagrams: 03/14/21 06:00 03/14/21 06:00 Laboratory: Laboratory Results - last 24 hr 03/13/21 03/13/21 03/13/21 16:03 16:05 16:05 WBC 3.3 L RBC 3.06 L Hgb 9.3 L Hct 28.1 L MCV 91.8 MCH 30.4 MCHC 33.1 RDW Std Deviation 47.3 H RDW Coeff of [place] 14.2 Plt Count 153 MPV 9.4 Immature Gran % (Auto) 0.300 Neut % (Auto) 65.3 Lymph % (Auto) 17.2 L [place] % (Auto) 13.9 H Eos % (Auto) 3.0 Baso % (Auto) 0.3 Absolute Neuts (auto) 2.2 Absolute Lymphs (auto) 0.57 L Nucleated RBC % 0 Differential Comment Diff Path Review May foll Atypical Lymphocytes Platelet Estimate ADEQUATE RBC Morphology NORM C+C PT 13.9 INR 1.1 APTT 29.8 Sodium Potassium Chloride Carbon Dioxide Anion Gap BUN Creatinine Estim Creat Clear Calc Est GFR (MDRD) Af Amer Est GFR (MDRD) Non-Af BUN/Creatinine Ratio Glucose Hemoglobin A1c Calcium Total Bilirubin AST ALT Alkaline Phosphatase Troponin I Total Protein Albumin Globulin Albumin/Globulin Ratio Triglycerides Cholesterol LDL Cholesterol VLDL Cholesterol HDL Cholesterol POC Glucose 119 H 03/13/21 03/13/21 03/14/21 16:05 16:05 06:00 WBC RBC Hgb Hct MCV MCH MCHC RDW Std Deviation RDW Coeff of [place] Plt Count MPV Immature Gran % (Auto) Neut % (Auto) Lymph % (Auto) [place] % (Auto) Eos % (Auto) Baso % (Auto) Absolute Neuts (auto) Absolute Lymphs (auto) Nucleated RBC % Differential Comment Diff Path Review Atypical Lymphocytes Platelet Estimate RBC Morphology PT INR APTT Sodium 133 L 136 Potassium 3.8 3.7 Chloride 102 104 Carbon Dioxide 26.0 26.0 Anion Gap 5 6 BUN 17 12 Creatinine 1.08 0.95 Estim Creat Clear Calc 63.84 72.57 Est GFR (MDRD) Af Amer 86 101 Est GFR (MDRD) Non-Af 71 83 BUN/Creatinine Ratio 15.7 12.7 Glucose 121 H 94 Hemoglobin A1c 6.0 H Calcium 8.2 L 7.6 L Total Bilirubin 0.50 AST 28 ALT 35 Alkaline Phosphatase 62 Troponin I < 0.015 Total Protein 5.3 L Albumin 2.6 L Globulin 2.7 Albumin/Globulin Ratio 1.0 Triglycerides 118 Cholesterol 86 LDL Cholesterol 40 VLDL Cholesterol 24 HDL Cholesterol 22 L POC Glucose 03/14/21 06:00 WBC 2.0 L RBC 2.83 L Hgb 8.6 L Hct 26.3 L MCV 92.9 MCH 30.4 MCHC 32.7 RDW Std Deviation 48.2 H RDW Coeff of [place] 14.2 Plt Count 149 L MPV 9.9 Immature Gran % (Auto) 0.500 Neut % (Auto) 60.4 Lymph % (Auto) 21.8 [place] % (Auto) 13.2 H Eos % (Auto) 4.1 Baso % (Auto) 0.0 Absolute Neuts (auto) 1.2 L Absolute Lymphs (auto) 0.43 L Nucleated RBC % 0 Differential Comment SCANNED Diff Path Review May foll Atypical Lymphocytes 1+ Platelet Estimate RBC Morphology PT INR APTT Sodium Potassium Chloride Carbon Dioxide Anion Gap BUN Creatinine Estim Creat Clear Calc Est GFR (MDRD) Af Amer Est GFR (MDRD) Non-Af BUN/Creatinine Ratio Glucose Hemoglobin A1c Calcium Total Bilirubin AST ALT Alkaline Phosphatase Troponin I Total Protein Albumin Globulin Albumin/Globulin Ratio Triglycerides Cholesterol LDL Cholesterol VLDL Cholesterol HDL Cholesterol POC Glucose Radiography Diagnostic Testing: Radiology Impression Brain CT 03/13/21 15:49 IMPRESSION: No acute intracranial findings. Individualized dose optimization techniques were used for this CT. at 1635 Reported and signed by: Adonis Forde MD Electronically Signed: Adonis Forde MD at 16:34 EDT Tel , Service support , ADDENDUM: 03/13/21 1645 IMPRESSION: No acute intracranial findings. Individualized dose optimization techniques were used for this CT. at 1635 Reported and signed by: Adonis Forde MD N.B. : The above information has been verbally conveyed by Adonis Forde MD to Emir Chavez MD, , on 03/13/2021 16:38:36 (ET). Electronically Signed: Adonis Forde MD at 16:34 EDT Tel , Service support , Chest X-Ray 03/13/21 16:15 IMPRESSION: No radiographic evidence of acute cardiopulmonary disease. at 1657 Reported and signed by: Adonis Forde MD Electronically Signed: Adonis Forde MD at 16:56 EDT Tel , Service support , Brain MRI 03/13/21 18:08 IMPRESSION: No acute intracranial findings. at 2325 Reported and signed by: Adonis Forde MD Electronically Signed: Adonis Forde MD at 23:24 EDT Tel , Service support , Neck MRA 03/13/21 18:08 IMPRESSION: 50% stenosis at the origin of the right ICA. at 2322 Reported and signed by: Adonis Forde MD Electronically Signed: Adonis Forde MD at 23:21 EDT Tel , Service support , Head MRA 03/13/21 18:34 IMPRESSION: Unremarkable MRA head. at 2334 Reported and signed by: Adonis Forde MD Electronically Signed: Adonis Forde MD at 23:33 EDT Tel , Service support , D/C Instructions Discharge Diet: No restrictions Discharge Activity: Return to Normal Activity Call your doctor if you observe: Shortness of breath, Dizziness and Chest pain Meaningful Use Info Meaningful Use Diagnoses (Choose all that apply): None applicable Discharge Plan Admission Admit Date/Time: 03/13/21 16:56 Primary Reason for Your Visit: Ataxia Attending Provider: Ayan Thibodeaux Primary Care Provider: Jesse Gonzalez Discharge Orders/Prescriptions Prescriptions: New meclizine 12.5 mg tablet 12.5 mg PO TID PRN (Reason: dizziness) Qty: 30 RF: 0 Continued multivitamin Tablet 1 tab PO DAILY RF: 0 latanoprost [Xalatan] 0.005 % drops 1 drp RIGHT EYE QHS RF: 0 atorvastatin 40 mg tablet 40 mg PO QHS RF: 0 metoprolol succinate 50 mg tablet extended release 24 hr 50 mg PO DAILY RF: 0 melatonin 3 mg Tablet 3 mg PO QHS RF: 0 clopidogrel 75 mg tablet 75 mg PO DAILY RF: 0 amlodipine 5 mg tablet 5 mg PO DAILY RF: 0 prochlorperazine maleate 10 mg Tablet 10 mg PO Q6H PRN (Reason: Nausea) RF: 0 acyclovir 400 mg tablet 400 mg PO BID RF: 0 aspirin [Aspirin Low Dose] 81 mg Tablet,Delayed Release (Dr/Ec) 81 mg PO DAILY RF: 0 timolol maleate 0.5 % drops 1 drp EACH EYE DAILY RF: 0 Referrals / Follow Up: Kathy Mustafa MD [STAFF PHYSICIAN] - See Referral Note (As scheduled) Jesse Gonzalez MD [Primary Care Provider] - In 1 Week Disposition Disposition (needs filled in before D/C Order can be placed): Home, self care Documented by User: Dr. Ayan Thibodeaux MD 03/14/21 15:59 Providers Date of Admission: 03/13/21 Reason For Visit: ATAXIA Medications at Discharge Home Medications acyclovir 400 mg PO BID 03/13/21 amlodipine 5 mg PO DAILY 03/13/21 aspirin [Aspirin Low Dose] 81 mg PO DAILY 03/13/21 atorvastatin 40 mg PO QHS 03/13/21 clopidogrel 75 mg PO DAILY 03/13/21 latanoprost [Xalatan] 1 drp RIGHT EYE QHS 03/13/21 melatonin 3 mg PO QHS 03/13/21 metoprolol succinate 50 mg PO DAILY 03/13/21 multivitamin 1 tab PO DAILY 03/13/21 prochlorperazine maleate 10 mg PO Q6H PRN 03/13/21 timolol maleate 1 drp EACH EYE DAILY 03/13/21 meclizine 12.5 mg PO TID PRN #30 tab 03/14/21 ABG / Lab / Microbiology Data Result Diagrams: 03/14/21 06:00 03/14/21 06:00 Discharge Plan Admission Admit Date/Time: 03/13/21 16:56 Primary Reason for Your Visit: Ataxia Attending Provider: Ayan Thibodeaux Primary Care Provider: Jesse Gonzalez Discharge Orders/Prescriptions Prescriptions: New meclizine 12.5 mg tablet 12.5 mg PO TID PRN (Reason: dizziness) Qty: 30 RF: 0 Continued multivitamin Tablet 1 tab PO DAILY RF: 0 latanoprost [Xalatan] 0.005 % drops 1 drp RIGHT EYE QHS RF: 0 atorvastatin 40 mg tablet 40 mg PO QHS RF: 0 metoprolol succinate 50 mg tablet extended release 24 hr 50 mg PO DAILY RF: 0 melatonin 3 mg Tablet 3 mg PO QHS RF: 0 clopidogrel 75 mg tablet 75 mg PO DAILY RF: 0 amlodipine 5 mg tablet 5 mg PO DAILY RF: 0 prochlorperazine maleate 10 mg Tablet 10 mg PO Q6H PRN (Reason: Nausea) RF: 0 acyclovir 400 mg tablet 400 mg PO BID RF: 0 aspirin [Aspirin Low Dose] 81 mg Tablet,Delayed Release (Dr/Ec) 81 mg PO DAILY RF: 0 timolol maleate 0.5 % drops 1 drp EACH EYE DAILY RF: 0 Referrals / Follow Up: Kathy Mustafa MD [STAFF PHYSICIAN] - See Referral Note (As scheduled) Jesse Gonzalez MD [Primary Care Provider] - In 1 Week Disposition Disposition (needs filled in before D/C Order can be placed): Home, self care Addendum Addendum: Dr. Thibodeaux: I personally reviewed the chart and examined the patient, and agree with the above findings. 71-year-old male with a history of CLL recently undergoing chemotherapy presented to the hospital with ataxia close nausea and vomiting. He said that he had difficulty ambulating and kept falling to the right side. He feels a little much improved today though he did have another episode of dizziness that was not as severe as what he came in with. Had an MRI which was negative for an acute stroke, his MRI of his neck demonstrated a 50% stenosis in the right ICA origin otherwise the MRA of his head was negative. Echo was unremarkable. Recommend follow-up with his PCP in 1week and to monitor for worsening symptoms after his next treatment for chemotherapy for CLL for possible recurrence. I discussed with him the plan for discharge and both he and his expressed understanding of the risk benefits going home and would like to go home today. Visit Charges OBSV E&M: 99298 Observation care discharge
--- NOTE | 2021-03-14 12:18 | CASEMGMT ---
SW did not complete a PHQ 9 as per Nurse Practitioner he did not have a Stroke or TIA. Monique Gamez EQUIPMENT ENGINEER NAYA
[2021-03-14 12:43] LABS: Pathologist Review Reviewed
--- NOTE | 2021-03-14 14:15 | CASEMGMT ---
Per therapy, no further therapy recommended and pt states normally has some dizziness. SStaten RN CM
[2021-03-15 13:23] LABS: Pathologist Review Reviewed
== END 2021-03-14 11:49 | disposition home or self-care (01) ==
LOC: ED 16:30 → PCU 17:11
PROVIDERS: Admitting Provider Internal Medicine; Emergency Provider Emergency Medicine; PCP Family Medicine; Visit Provider Family Medicine
DX: R26.0 Ataxic gait (principal); R11.2 Nausea with vomiting, unspecified; I25.10 Atherosclerotic heart disease of native coronary artery without angina pectoris; C91.10 Chronic lymphocytic leukemia of B-cell type not having achieved remission; I10 Essential (primary) hypertension; E78.5 Hyperlipidemia, unspecified; R29.701 NIHSS score 1; Z79.02 Long term (current) use of antithrombotics/antiplatelets; Z95.1 Presence of aortocoronary bypass graft; Z79.899 Other long term (current) drug therapy; Z79.82 Long term (current) use of aspirin; E87.1 Hypo-osmolality and hyponatremia; I08.3 Combined rheumatic disorders of mitral, aortic and tricuspid valves
CPT/HCPCS: 36415; 70450; 70544; 70549; 70551; 71045; 80048; 80053; 80061; 82962; 83036; 84484; 85025; 85610; 85730; 92523; 92610; 93005; 93306; 96360; 96361; 96372; 97161; 99218; 99285; A9575; J7030; A4216; G0378; J3490